=== PATIENT | female | born 1995 | race Caucasian/White ===

== ENCOUNTER 2018-05-13 15:13 | Day surgery (SDC) | payer BC ==
[2018-05-13 16:00] LABS: ADD MAN DIFF? NO
[2018-05-13 16:03] LABS: BASOPHILS % 0.3 % (0.0-2.0); EOSINOPHILS # 0.1 10^3/ul (0.0-0.5); EOSINOPHILS % 1.4 % (0.0-7.0); HEMATOCRIT 43.8 % (37.0-47.0); HEMOGLOBIN 14.5 g/dl (12.0-16.0); LYMPHOCYTES # 1.9 10^3/ul (0.8-2.9); LYMPHOCYTES % 27.1 % (15.0-51.0); MEAN CORPUSCULAR HEMOGLOBIN 28.1 pg (29.0-33.0); MEAN CORPUSCULAR HGB CONC 33.1 g/dl (32.0-37.0); MEAN CORPUSCULAR VOLUME 84.9 fl (82.0-101.0); MEAN PLATELET VOLUME 9.8 fl (7.4-10.4); MONOCYTE # 0.3 10^3/ul (0.3-0.9); MONOCYTES % 4.3 % (0.0-11.0); NEUTROPHIL # 4.7 10^3/ul (1.6-7.5); NEUTROPHILS % 66.8 % (39.0-77.0); PLATELET COUNT 289 10^3/UL (140-415); RED BLOOD COUNT 5.16 10^6/ul (4.20-5.40); RED CELL DISTRIBUTION WIDTH 12.1 % (11.5-14.5)
[2018-05-13 16:07] LABS: INR 0.89; PROTIME 12.1 Sec (11.9-14.9); PT RATIO 0.9
[2018-05-13 16:08] LABS: PARTIAL THROMBOPLASTIN TIME 28.1 Sec (23.0-35.0)
[2018-05-13 16:09] LABS: ALANINE AMINOTRANSFERASE 19 IU/L (13-69); ALBUMIN 4.6 g/dl (3.3-4.9); ALBUMIN/GLOBULIN RATIO 1.12; ALKALINE PHOSPHATASE 78 IU/L (42-121); ANION GAP 13 (5-13); ASPARTATE AMINO TRANSFERASE 21 IU/L (15-46); BILIRUBIN,INDIRECT 0.4 mg/dl (0-1.1); BILIRUBIN,TOTAL 0.4 mg/dl (0.2-1.3); BLOOD UREA NITROGEN 11 mg/dl (7-20); CALCIUM 9.8 mg/dl (8.4-10.2); CARBON DIOXIDE 27 mmol/L (21-31); CHLORIDE 105 mmol/L (97-110); Estimated GFR > 60 mL/min (>60); GLUCOSE 90 mg/dl (70-220); TOTAL PROTEIN 8.7 g/dl (6.1-8.1)
[2018-05-13 16:13] LABS: SODIUM 145 mmol/L (135-144)
[2018-05-13] MEDS ORDERED: PROPOFOL 100 ML (16:30)
[2018-05-13] MEDS ORDERED: ROCURONIUM 50 MG INJ (16:30)
[2018-05-13] MEDS ORDERED: LIDOCAINE 100 MG SYRINGE (16:30)
[2018-05-13] MEDS ORDERED: ONDANSETRON 4 MG INJ (16:31)
[2018-05-13] MEDS ORDERED: DEXAMETHASONE 4 MG/ML 1 ML INJ ×2 (16:31→16:52)
[2018-05-13] MEDS ORDERED: MIDAZOLAM 1 MG/ML 2 ML INJ (16:32)
[2018-05-13] MEDS ORDERED: CEFAZOLIN 1 GM INJ (16:32)
[2018-05-13] MEDS ORDERED: FENTAnyl 50 MCG/ML VIAL ×2 (16:32→17:59)
[2018-05-13] MEDS ORDERED: ROPIVACAINE 0.5 % 30 ML VIAL (16:54)
[2018-05-13] MEDS ORDERED: FENTAnyl 50 MCG/ML VIAL IV (17:00)
[2018-05-13] MEDS ORDERED: LABETALOL HCL 20MG INJ IV (17:00)
[2018-05-13] MEDS ORDERED: HYDROmorphONE 1 MG/5 ML IV SYRINGE IV (17:00)
[2018-05-13] MEDS: BUPIVACAINE 0.25%/EPI (SDV) 10 ML INJ (17:00)
[2018-05-13] MEDS ORDERED: hydrALAzine 20 MG INJ IV (17:00)
[2018-05-13] MEDS: LIDOCAINE 1% (STERILE-PAK) 30 ML INJ (17:00)
[2018-05-13] MEDS ORDERED: SUGAMMADEX SODIUM 200 MG/2 ML VIAL IV (18:06)
[2018-05-13] MEDS: ONDANSETRON 4 MG INJ IV (18:55)
[2018-05-13] MEDS: MEPERIDINE 25 MG INJ IV (18:55)
[2018-05-13] MEDS: FENTAnyl 50 MCG/ML VIAL IV (19:18)
[2018-05-13] MEDS ORDERED: LACTATED RINGER'S 1,000 ML IV (19:25)
[2018-05-13] MEDS ORDERED: ONDANSETRON 4 MG INJ IV (19:30)
[2018-05-13] MEDS: HYDROmorphONE 1 MG/5 ML IV SYRINGE IV (19:43)
== END 2018-05-13 20:13 | disposition home or self-care (01) ==
LOC: SDS 15:13
DX: K80.10 Calculus of gallbladder with chronic cholecystitis without obstruction (principal); K43.9 Ventral hernia without obstruction or gangrene
CPT/HCPCS: 47562; 80053; 84703; 85025; 85610; 85730; 88305; 93005